=== PATIENT | female | born 2000 | race Caucasian/White ===

== ENCOUNTER 2021-08-12 20:53 | Outpatient (CLI) | payer MEDICAID ==
[~2021-08-12] VITALS: Wt 70.5 kg
[2021-08-12 21:56] LABS: COLLECTION METHOD CLEAN CATCH
[2021-08-12 21:59] LABS: BASO % 0.3 % (0.0-2.0); EOS % 0.3 % (0.0-4.0); GRAN # 10.6 K/mm3 (1.4-6.5); HEMOGLOBIN 12.7 g/dl (12.0-15.0); LYMPH # 1.8 K/mm3 (1.2-3.4); LYMPH % 13.6 % (20.0-51.0); MEAN CELL VOLUME 85 fl (80.0-95.0); MEAN CORPUSCULAR HEMOGLOBIN 30 pg (26-32); MEAN CORPUSCULAR HGB CONC 35 g/dl (33.0-37.0); MEAN PLATELET VOLUME 10.4 fl (7.4-10.4); MONO # 0.9 K/mm3 (0.1-0.6); MONO % 6.4 % (1.7-9.3); PLATELET COUNT 214 K/mm3 (130-400); RED BLOOD COUNT 4.25 M/mm3 (4.10-5.30); REDCELL DISTRIBUTION WIDTH-CV 12.8 % (11.5-14.5)
[2021-08-12 22:05] VITALS: BP 104/67; PULSE 82; TEMP 97.9
[2021-08-12 22:09] LABS: MUCOUS Present (NOT PRESENT); PH 7 (5-8); URINE APPEARANCE Cloudy (CLEAR/HAZY); URINE BACTERIA None Seen /hpf (NONE SEEN); URINE BILIRUBIN Negative (NEGATIVE); URINE BLOOD Negative (NEGATIVE); URINE COLOR Yellow (YELLOW); URINE GLUCOSE Negative (NEGATIVE); URINE KETONE 1+ (NEGATIVE); URINE LEUKOCYTE ESTERASE Negative (NEGATIVE); URINE NITRATE Negative (NEGATIVE); URINE PROTEIN(semi-quant) Negative (NEGATIVE); URINE RBC 0-2 /hpf (0-2); URINE UROBILINOGEN Negative (NEGATIVE); URINE WBC 0-2 /hpf (0-2)
[2021-08-12 22:17] LABS: ALBUMIN 3.2 gm/dL (3.5-5.0); BILIRUBIN,TOTAL 0.4 mg/dL (0.2-1.2); CALCIUM 9.3 mg/dL (8.4-10.2); CREATININE, serum 0.67 mg/dL (0.57-1.11); POTASSIUM 3.7 mmol/L (3.5-4.5); TOTAL PROTEIN 6.6 gm/dL (6.2-8.1)
[2021-08-12] MEDS ORDERED: ZOLOFT 100MG100 MG PO (22:17)
[2021-08-12] MEDS ORDERED: VISTARIL 2525 MG/CAP PO (22:18)
[2021-08-12] MEDS ORDERED: PRENATAL TABLET PO (22:18)
== END 2021-08-12 22:55 | disposition home or self-care (01) ==
LOC: LDRO 20:53 → LDR 21:00 → LDRO 22:55
PROVIDERS: Obstetrics & Gynecology
DX: O26.892 Other specified pregnancy related conditions, second trimester (principal); O21.9 Vomiting of pregnancy, unspecified; R10.9 Unspecified abdominal pain; R19.7 Diarrhea, unspecified; Z3A.25 25 weeks gestation of pregnancy
CPT/HCPCS: OP; J2405; J7121

== ENCOUNTER 2021-09-17 12:31 | Emergency (ER) | payer OTHER, MEDICAID ==
[~2021-09-17] VITALS: Wt 70.5 kg
[~2021-09-17 12:31] MED LIST: PRENATAL TABLET PO; VISTARIL 2525 MG/CAP PO; ZOLOFT 100MG100 MG PO
[2021-09-17 16:28] LABS: COLLECTION METHOD CLEAN CATCH
[2021-09-17 16:33] LABS: BASO % 0.4 % (0.0-2.0); EOS # 0.1 K/mm3 (0.0-0.7); EOS % 0.6 % (0.0-4.0); GRAN % 74.7 % (42.2-75.2); HEMOGLOBIN 11.8 g/dl (12.0-15.0); LYMPH # 1.8 K/mm3 (1.2-3.4); LYMPH % 16.4 % (20.0-51.0); MEAN CELL VOLUME 88 fl (80.0-95.0); MEAN CORPUSCULAR HEMOGLOBIN 30 pg (26-32); MEAN CORPUSCULAR HGB CONC 34 g/dl (33.0-37.0); MEAN PLATELET VOLUME 10.9 fl (7.4-10.4); MONO # 0.8 K/mm3 (0.1-0.6); MONO % 7.2 % (1.7-9.3); PLATELET COUNT 207 K/mm3 (130-400); REDCELL DISTRIBUTION WIDTH-CV 12.5 % (11.5-14.5)
[2021-09-17 16:37] LABS: MUCOUS Present (NOT PRESENT); PH 7 (5-8); SQUAMOUS EPITHELIAL 0-2 /hpf (0-10); URINE APPEARANCE Clear (CLEAR/HAZY); URINE BACTERIA None Seen /hpf (NONE SEEN); URINE BILIRUBIN Negative (NEGATIVE); URINE BLOOD Negative (NEGATIVE); URINE COLOR Yellow (YELLOW); URINE GLUCOSE Negative (NEGATIVE); URINE KETONE Negative (NEGATIVE); URINE LEUKOCYTE ESTERASE Negative (NEGATIVE); URINE NITRATE Negative (NEGATIVE); URINE PROTEIN(semi-quant) Negative (NEGATIVE); URINE RBC 0-2 /hpf (0-2); URINE UROBILINOGEN Negative (NEGATIVE)
[2021-09-17 16:51] LABS: ALBUMIN 2.9 gm/dL (3.5-5.0); CALCIUM 8.3 mg/dL (8.4-10.2); CREATININE, serum 0.59 mg/dL (0.57-1.11); POTASSIUM 3.8 mmol/L (3.5-4.5); TOTAL PROTEIN 6.1 gm/dL (6.2-8.1)
[2021-09-17 17:10] LABS: BILIRUBIN,TOTAL 0.3 mg/dL (0.2-1.2)
[2021-09-17 20:15] VITALS: BP 121/68; PULSE 89; TEMP 98.1
== END 2021-09-17 18:31 | disposition home or self-care (01) ==
LOC: COL.ER 12:31
PROVIDERS: Nurse Practitioner
DX: O26.813 Pregnancy related exhaustion and fatigue, third trimester (principal); R55 Syncope and collapse; O99.343 Other mental disorders complicating pregnancy, third trimester; F32.A Depression, unspecified; Z3A.30 30 weeks gestation of pregnancy; Z87.891 Personal history of nicotine dependence
CPT/HCPCS: J1200; J2765; J7030

== ENCOUNTER 2021-09-17 13:52 | Outpatient (CLI) | payer MEDICAID ==
[~2021-09-17] VITALS: Ht 152.4 cm; Wt 73.2 kg
--- NOTE | 2021-09-17 13:30 | NUR ---
Patient here from wheel chair via wheelchair. Patient states "I fainted this morning and fell and have not felt baby move much". Plan of care discussed and quesitons answered. 1400: Dr. Blair at nurses station and notified. Orders for a 20 minute reactive strip and to go back to ER to be assessed. Patient states that she is worried about her fainting spells. Dr. Blair updated. 1415: at bedside educating patient and discussing plan of care and questions answered. 1417: Patient off monitors. 1425: Patient to wheelchair and nanotechnology engineering technologist takes patient back to ER to be assessed for fall.
[2021-09-17 14:00] VITALS: BP 110/61; PULSE 80; TEMP 98.2
[2021-09-17 14:17] VITALS: BP 102/58; PULSE 89
== END 2021-09-17 14:25 | disposition home or self-care (01) ==
LOC: LDRO 13:52
DX: O36.8130 Decreased fetal movements, third trimester, not applicable or unspecified (principal); O9A.213 Injury, poisoning and certain other consequences of external causes complicating pregnancy, third trimester; Z3A.30 30 weeks gestation of pregnancy

== ENCOUNTER 2021-09-19 12:19 | Emergency (ER) | payer OTHER, MEDICAID ==
[~2021-09-19] VITALS: Ht 152.4 cm; Wt 70.5 kg
[2021-09-19 12:25] VITALS: TEMP 97.9
[2021-09-19 12:58] LABS: BASO % 0.4 % (0.0-2.0); EOS # 0.1 K/mm3 (0.0-0.7); EOS % 0.6 % (0.0-4.0); GRAN # 7.7 K/mm3 (1.4-6.5); HEMOGLOBIN 11.9 g/dl (12.0-15.0); LYMPH # 1.6 K/mm3 (1.2-3.4); LYMPH % 16.2 % (20.0-51.0); MEAN CELL VOLUME 88 fl (80.0-95.0); MEAN CORPUSCULAR HEMOGLOBIN 30 pg (26-32); MEAN CORPUSCULAR HGB CONC 34 g/dl (33.0-37.0); MEAN PLATELET VOLUME 10.6 fl (7.4-10.4); MONO # 0.6 K/mm3 (0.1-0.6); MONO % 6.3 % (1.7-9.3); PLATELET COUNT 205 K/mm3 (130-400); RED BLOOD COUNT 4.02 M/mm3 (4.10-5.30); REDCELL DISTRIBUTION WIDTH-CV 12.5 % (11.5-14.5)
[2021-09-19 12:59] LABS: HEMATOCRIT 35.5 % (35.0-45.0)
[2021-09-19 13:16] LABS: BILIRUBIN,TOTAL 0.3 mg/dL (0.2-1.2); CALCIUM 8.6 mg/dL (8.4-10.2); CREATININE, serum 0.66 mg/dL (0.57-1.11); POTASSIUM 3.3 mmol/L (3.5-4.5); TOTAL PROTEIN 6.2 gm/dL (6.2-8.1)
[2021-09-19 14:40] LABS: COLLECTION METHOD CLEAN CATCH
[2021-09-19 15:11] LABS: MUCOUS Present (NOT PRESENT); URINE BACTERIA Occasional /hpf (NONE SEEN); URINE RBC 0-2 /hpf (0-2)
[2021-09-19 15:28] LABS: PH 7 (5-8); URINE APPEARANCE Clear (CLEAR/HAZY); URINE COLOR Yellow (YELLOW)
[2021-09-19 15:29] LABS: URINE BILIRUBIN Negative (NEGATIVE); URINE BLOOD Negative (NEGATIVE); URINE GLUCOSE Negative (NEGATIVE); URINE KETONE Negative (NEGATIVE); URINE LEUKOCYTE ESTERASE Negative (NEGATIVE); URINE NITRATE Negative (NEGATIVE); URINE PROTEIN(semi-quant) Negative (NEGATIVE); URINE UROBILINOGEN Negative (NEGATIVE)
[2021-09-19 15:43] VITALS: BP 114/74; PULSE 79
== END 2021-09-19 15:45 | disposition home or self-care (01) ==
LOC: COL.ER 12:19
PROVIDERS: Emergency Medicine
DX: O26.813 Pregnancy related exhaustion and fatigue, third trimester (principal); R55 Syncope and collapse; O99.343 Other mental disorders complicating pregnancy, third trimester; F32.A Depression, unspecified; Z3A.30 30 weeks gestation of pregnancy
CPT/HCPCS: A4314; J7030

== ENCOUNTER 2021-10-12 13:33 | Emergency (ER) | payer OTHER, MEDICAID ==
[~2021-10-12] VITALS: Ht 152.4 cm; Wt 72.7 kg
[2021-10-12 13:38] VITALS: TEMP 99.2
[2021-10-12 14:08] LABS: BASO % 0.3 % (0.0-2.0); EOS % 0.1 % (0.0-4.0); GRAN # 5.8 K/mm3 (1.4-6.5); GRAN % 84.6 % (42.2-75.2); HEMOGLOBIN 10.5 g/dl (12.0-15.0); LYMPH # 0.4 K/mm3 (1.2-3.4); LYMPH % 5.7 % (20.0-51.0); MEAN CELL VOLUME 85 fl (80.0-95.0); MEAN CORPUSCULAR HEMOGLOBIN 29 pg (26-32); MEAN CORPUSCULAR HGB CONC 34 g/dl (33.0-37.0); MEAN PLATELET VOLUME 10.3 fl (7.4-10.4); MONO # 0.6 K/mm3 (0.1-0.6); MONO % 8.7 % (1.7-9.3); PLATELET COUNT 159 K/mm3 (130-400); RED BLOOD COUNT 3.57 M/mm3 (4.10-5.30); REDCELL DISTRIBUTION WIDTH-CV 12.1 % (11.5-14.5)
[2021-10-12 14:09] LABS: HEMATOCRIT 30.5 % (35.0-45.0)
[2021-10-12 14:25] LABS: ALBUMIN 2.6 gm/dL (3.5-5.0); BILIRUBIN,TOTAL 0.3 mg/dL (0.2-1.2); CREATININE, serum 0.68 mg/dL (0.57-1.11); MAGNESIUM 1.5 mg/dL (1.7-2.2); POTASSIUM 3.4 mmol/L (3.5-4.5); TOTAL PROTEIN 5.4 gm/dL (6.2-8.1)
[2021-10-12 14:45] LABS: THYROID STIMULATING HORMONE 0.168 uIU/mL (0.350-4.940)
[2021-10-12 15:24] LABS: COLLECTION METHOD CLEAN CATCH
[2021-10-12 15:31] LABS: PH 7 (5-8); SQUAMOUS EPITHELIAL 0-2 /hpf (0-10); URINE APPEARANCE Clear (CLEAR/HAZY); URINE BACTERIA Rare /hpf (NONE SEEN); URINE BILIRUBIN Negative (NEGATIVE); URINE BLOOD Negative (NEGATIVE); URINE COLOR Straw (YELLOW); URINE GLUCOSE Negative (NEGATIVE); URINE KETONE Negative (NEGATIVE); URINE LEUKOCYTE ESTERASE Negative (NEGATIVE); URINE NITRATE Negative (NEGATIVE); URINE PROTEIN(semi-quant) Negative (NEGATIVE); URINE RBC 0-2 /hpf (0-2); URINE UROBILINOGEN Negative (NEGATIVE)
[2021-10-12] MEDS ORDERED: KEPPRA 500MG500 MG PO (16:04)
[2021-10-12 17:01] VITALS: BP 120/61; PULSE 80
== END 2021-10-12 17:00 | disposition home or self-care (01) ==
LOC: COL.ER 13:33
PROVIDERS: Student in an Organized Health Care Education/Training Program
DX: O99.353 Diseases of the nervous system complicating pregnancy, third trimester (principal); G40.909 Epilepsy, unspecified, not intractable, without status epilepticus; Z3A.34 34 weeks gestation of pregnancy
CPT/HCPCS: J1953

== ENCOUNTER 2021-10-14 12:32 | Inpatient (IN) | payer OTHER, MEDICAID ==
[~2021-10-14] VITALS: Ht 167.6 cm; Wt 72.7 kg
[~2021-10-14 12:32] MED LIST changes: +KEPPRA 500MG500 MG PO
--- NOTE | 2021-10-14 12:40 | NUR ---
1240- Pt seen in ED after found down at home from reported seizure activity. Pt G1L0 34.2 weeks pt of [facility]. Pt reports occasional contractions, denies any leaking of fluid or vaginal bleeding and reports normal movement. EFM and toco monitors started. 1302- Update given to ED staff. No contractions noted per toco monitor. Category 1 tracing. See FHR tracing flowsheet for details.
[2021-10-14 13:06] LABS: BASO % 0.2 % (0.0-2.0); EOS # 0.1 K/mm3 (0.0-0.7); EOS % 0.6 % (0.0-4.0); GRAN # 7.6 K/mm3 (1.4-6.5); GRAN % 80.9 % (42.2-75.2); HEMOGLOBIN 11.5 g/dl (12.0-15.0); LYMPH # 1.1 K/mm3 (1.2-3.4); LYMPH % 11.7 % (20.0-51.0); MEAN CELL VOLUME 86 fl (80.0-95.0); MEAN CORPUSCULAR HEMOGLOBIN 29 pg (26-32); MEAN CORPUSCULAR HGB CONC 33 g/dl (33.0-37.0); MEAN PLATELET VOLUME 10.2 fl (7.4-10.4); MONO # 0.6 K/mm3 (0.1-0.6); MONO % 6.1 % (1.7-9.3); PLATELET COUNT 173 K/mm3 (130-400); REDCELL DISTRIBUTION WIDTH-CV 12.5 % (11.5-14.5)
[2021-10-14 13:10] LABS: HEMATOCRIT 34.4 % (35.0-45.0)
[2021-10-14 13:24] LABS: ALANINE AMINOTRANSFERASE 12 U/L (0-55); ALBUMIN 2.7 gm/dL (3.5-5.0); ALKALINE PHOSPHATASE 109 U/L (40-150); ANION GAP 8 mmol/L (7-16); AST,SGOT 14 U/L (5-34); BILIRUBIN,TOTAL 0.4 mg/dL (0.2-1.2); BLOOD UREA NITROGEN 3 mg/dL (8-21); CALCIUM 8.2 mg/dL (8.4-10.2); CARBON DIOXIDE 20 mmol/L (22-29); CHLORIDE 111 mmol/L (98-107); GLUCOSE 91 mg/dL (70-99); POTASSIUM 3.6 mmol/L (3.5-4.5); SODIUM 139 mmol/L (136-145); TOTAL PROTEIN 5.8 gm/dL (6.2-8.1)
[2021-10-14 13:25] LABS: ALCOHOL(ethanol),MEDICAL < 10 mg/dL (0-10)
[2021-10-14 13:34] LABS: COLLECTION METHOD CLEAN CATCH
[2021-10-14 13:57] LABS: MUCOUS Present (NOT PRESENT); PH 5 (5-8); URINE APPEARANCE Cloudy (CLEAR/HAZY); URINE BACTERIA Occasional /hpf (NONE SEEN); URINE BILIRUBIN Negative (NEGATIVE); URINE BLOOD Negative (NEGATIVE); URINE COLOR Amber (YELLOW); URINE GLUCOSE Negative (NEGATIVE); URINE KETONE 1+ (NEGATIVE); URINE LEUKOCYTE ESTERASE Trace (NEGATIVE); URINE NITRATE Negative (NEGATIVE); URINE PROTEIN(semi-quant) 1+ (NEGATIVE); URINE RBC 0-2 /hpf (0-2)
[2021-10-14 14:03] LABS: TRICYCLIC ANTIDEPRESS URINE NEGATIVE
[2021-10-14] MEDS ORDERED: KEPPRA750 MG PO (14:37)
--- NOTE | 2021-10-14 23:39 | NUR ---
PATIENT ARRIVED TO ROOM 303 AT THIS TIME FROM THE ED. PATIENT CALM AND COOPERATIVE. V/S STABLE. FOOD PROVIDED TO PATIENT AT THIS TIME. SEIZURE PRECAUTIONS IN PLACE, CALL LIGHT WITHIN REACH, AND BED ALARM ON. PATIENT STATES SHE IS IN THERAPY WITH MATILDA MEZA THROUGH [facility] FOR ANXIETY AND DEPRESSION FOR PTSD. NO NEW CONCERNS REPORTED BY PATIENT AT THIS TIME.
[2021-10-14 23:46] VITALS: BP 104/64; PULSE 92; TEMP 99
[2021-10-15] VITALS (7 sets, daily range): BP systolic 95–111; BP diastolic 56–72; PULSE 66–99; TEMP 97.9–98.4
--- NOTE | 2021-10-15 09:59 | NUR ---
Patient requested assistance to the bathroom, d/t migraine and feeling like she may faint. Patient reports that her migraine is behind her eyes, and her vision will go black before she faints. Patient given PRN tylenol. Blinds closed in room to help w/ migraine. Dr. Vitale notified.
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
--- NOTE | 2021-10-15 14:35 | NUR ---
Patient has not expressed any complaints/concerns since this morning when she was experiencing a migraine. Does call for assistance to the restroom. RN from OB called and stated that she would be up at some point to do an NST.
--- NOTE | 2021-10-15 21:12 | NUR ---
ALERT AND X4. DENIES SOA, CHEST PAIN OR DIZZY. DENIES ANY COVID SYMPTOMS. PM MEDS GIVEN. AWAITING EEG AND MRI OF BRAIN FOR TOMORROW. SCD ON. CALL LIGHT WI REACH.
[2021-10-16 03:14] VITALS: BP 101/58; PULSE 97; TEMP 97.7
--- NOTE | 2021-10-16 05:29 | NUR ---
RESTED THROUGH THE NIGHT WITHOUT INCIDENT. CALL LIGHT WI REACH. NEEDS MET.
[2021-10-16 08:00] VITALS: BP 118/80; PULSE 111
[2021-10-16 08:40] LABS: BASO % 0.3 % (0.0-2.0); EOS # 0.1 K/mm3 (0.0-0.7); EOS % 0.8 % (0.0-4.0); GRAN # 4.6 K/mm3 (1.4-6.5); GRAN % 72.5 % (42.2-75.2); HEMOGLOBIN 11.4 g/dl (12.0-15.0); LYMPH # 1.2 K/mm3 (1.2-3.4); LYMPH % 18.3 % (20.0-51.0); MEAN CELL VOLUME 85 fl (80.0-95.0); MEAN CORPUSCULAR HEMOGLOBIN 29 pg (26-32); MEAN CORPUSCULAR HGB CONC 35 g/dl (33.0-37.0); MEAN PLATELET VOLUME 10.6 fl (7.4-10.4); MONO # 0.5 K/mm3 (0.1-0.6); MONO % 7.3 % (1.7-9.3); PLATELET COUNT 161 K/mm3 (130-400); RED BLOOD COUNT 3.88 M/mm3 (4.10-5.30); REDCELL DISTRIBUTION WIDTH-CV 12.4 % (11.5-14.5)
[2021-10-16 08:41] LABS: HEMATOCRIT 32.9 % (35.0-45.0)
[2021-10-16 08:55] LABS: ALBUMIN 2.6 gm/dL (3.5-5.0); BILIRUBIN,TOTAL 0.5 mg/dL (0.2-1.2); CALCIUM 7.7 mg/dL (8.4-10.2); CREATININE, serum 0.56 mg/dL (0.57-1.11); POTASSIUM 3.3 mmol/L (3.5-4.5); TOTAL PROTEIN 5.2 gm/dL (6.2-8.1)
--- NOTE | 2021-10-16 09:12 | NUR ---
operations technician came to this RN asking for assistance. Patient was unresponsive. VSS, BS WNL. Dominique called and notified. Stat labs ordered and obtained. Patient's eyes were rolled to the back of her head, pupils reactive. Patient moved from MRI cart back to her bed. Patient became responsive, eyes are tracking, following directions (squeezes hands, wiggles toes, nods head, blinks). However, patient is not verbal. Dominique is aware of this. Dr. Vitale to assess.
[2021-10-16 11:50] VITALS: BP 102/64; PULSE 92; TEMP 98.2
[2021-10-16] MEDS ORDERED: KEPPRA750 MG PO (13:56)
[2021-10-16 15:02] VITALS: BP 107/67; PULSE 111; TEMP 98.1
--- NOTE | 2021-10-16 17:47 | NUR ---
Patient has been doing okay since the events of this morning. Patient is A&Ox4, and conversating appropriately. Patient walked to the bathroom w/ the assistance of this RN.
[2021-10-16 20:22] VITALS: BP 92/56; PULSE 109; TEMP 97.9
--- NOTE | 2021-10-16 22:15 | NUR ---
ALERT AND OX4. DENIES SOA, CHEST PAIN OR DIZZY. MOVEMENT, NO CONTRACTIONS OR BLEEDING. DID HAVE A "EPSISODE" TODAY DURING DAY SHIFT. PM MEDS GIVEN AND SHOWERED. CALL LIGHT WI REACH.
[2021-10-17 00:23] VITALS: BP 93/55; PULSE 81; TEMP 98.2
[2021-10-17 04:33] VITALS: BP 102/65; PULSE 85; TEMP 97.7
--- NOTE | 2021-10-17 06:16 | NUR ---
RESTED THROUGH THE NIGHT WITHOUT INCIDENT. HAD SOME NAUSEA/VOMIT SMALL. RESOLVED DENIED NEED FOR MED.
[2021-10-17 07:12] VITALS: BP 100/61; PULSE 89; TEMP 98
--- NOTE | 2021-10-17 09:37 | NUR ---
PATIENT PLEASANT THIS MORNING WITH NO COMPLAINTS. STABLE CONDITION AND EXPERESSES THAT SHE WOULD LIKE TO GO HOME. ONGOING MONITOR IN PLACE WITH NO KNOWN COMPLICATIONS. NO SEIZURE LIKE ACTIVITY THUS FAR. CONT TO TAKE KEPPRA FOR THIS. DENIES COVID SYMPTOMS AT THIS TIME.
== END 2021-10-17 10:50 | disposition home or self-care (01) | DRG 831 ==
LOC: COL.ER 12:32 → MEDICAL 20:18
PROVIDERS: Emergency Medicine; Physician Assistant; ADMIT Internal Medicine
DX: O26.893 Other specified pregnancy related conditions, third trimester (principal); U07.1 COVID-19; O98.513 Other viral diseases complicating pregnancy, third trimester; R56.9 Unspecified convulsions; O99.013 Anemia complicating pregnancy, third trimester; D64.9 Anemia, unspecified; O99.343 Other mental disorders complicating pregnancy, third trimester; F41.9 Anxiety disorder, unspecified; F32.A Depression, unspecified; F43.10 Post-traumatic stress disorder, unspecified; Z3A.34 34 weeks gestation of pregnancy
CPT/HCPCS: 99233-AI; 99239; G0378; J1953; J7030

== ENCOUNTER 2021-11-19 07:20 | Inpatient (IN) | payer OTHER, MEDICAID ==
[~2021-11-19] VITALS: Ht 152.4 cm; Wt 75.5 kg
[2021-11-19] VITALS (8 sets, daily range): BP systolic 99–156; BP diastolic 50–81; PULSE 73–101; TEMP 98.3
[~2021-11-19 07:20] MED LIST changes: +KEPPRA750 MG PO
--- NOTE | 2021-11-19 19:05 | NUR ---
1904 - PATIENT AMBULATORY TO R4. PATIENT ORIENTED TO ROOM. PATIENT CHANGES INTO GOWN. 1914 - PLAN OF CARE DISCUSSED. PATIENT PLACED ON MONITOR. VITAL SIGNS OBTAINED. 1929 - IV STARTED, LABS OBTAINED ORDERED. LR INITIATED. 1939 - SVE PERFORMED BY VICKIE TURCIOS. 2. 1944 - PLAN OF CARE AGAIN REVIEWED. QUESTIONS ANSWERED. CONSENTS EXPLAINED AND SIGNED. ORAL HYDRATION PROVIDED. CARE ONGOING.
[2021-11-19 19:58] LABS: BASO % 0.3 % (0.0-2.0); EOS % 0.4 % (0.0-4.0); GRAN # 7.6 K/mm3 (1.4-6.5); GRAN % 73.1 % (42.2-75.2); HEMOGLOBIN 11.5 g/dl (12.0-15.0); LYMPH # 1.8 K/mm3 (1.2-3.4); LYMPH % 17.6 % (20.0-51.0); MEAN CELL VOLUME 84 fl (80.0-95.0); MEAN CORPUSCULAR HEMOGLOBIN 29 pg (26-32); MEAN CORPUSCULAR HGB CONC 34 g/dl (33.0-37.0); MEAN PLATELET VOLUME 11.1 fl (7.4-10.4); MONO # 0.8 K/mm3 (0.1-0.6); PLATELET COUNT 232 K/mm3 (130-400); RED BLOOD COUNT 4.03 M/mm3 (4.10-5.30); REDCELL DISTRIBUTION WIDTH-CV 12.2 % (11.5-14.5)
[2021-11-19 20:01] LABS: HEMATOCRIT 33.9 % (35.0-45.0)
[2021-11-19] MEDS ORDERED: KEPPRA1000 MG PO (20:23)
[2021-11-19] MEDS ORDERED: SEROQUEL50 MG PO (20:25)
--- NOTE | 2021-11-19 21:30 | NUR ---
TOCO TRACING POORLY. TOCO ADJUSTED. CARE ONGOING.
[2021-11-20] VITALS (70 sets, daily range): BP systolic 91–138; BP diastolic 46–97; PULSE 67–133; TEMP 97.3–98.7
--- NOTE | 2021-11-20 | NUR ---
TOCO TRACING INDESCERNIBLE. TOCO ADJUSTED. CARE ONGOING.
--- NOTE | 2021-11-20 03:00 | NUR ---
TOCO TRACING INDESCERNIBLE. TOCO ADJUSTED. CARE ONGOING.
--- NOTE | 2021-11-20 05:30 | NUR ---
TOCO TRACING INDESCERNIBLE. TOCO ADJUSTED. CARE ONGOING
--- NOTE | 2021-11-20 06:00 | NUR ---
TOCO TRACING POORLY. TOCO ADJUSTED. CARE ONGOING.
--- NOTE | 2021-11-20 06:15 | NUR ---
TOCO TRACING INDESCERNIBLE. TOCO ADJUSTED. CARE ONGOING.
--- NOTE | 2021-11-20 09:15 | NUR ---
0850 Pt sat up for epidural. Instructed on positioning 0907 Test dose given. Pt repositioned. Safety precautions and plan of care discussed. Pt verbalizes understanding. Call light within reach.
--- NOTE | 2021-11-20 16:40 | NUR ---
1632 Dr. Blair at pt's bedside. assessing FHR strip. SVE per Dr Blair 6-7/[address] Blair instructs to restart pitocin at 10 mu.
--- NOTE | 2021-11-20 17:05 | NUR ---
1705 pt vomiting this Rn at bedside 1710 This RN, Negrita Spear RN and Dr Blair at bedside repositioning patient. Lr increased. SVE per Dr Blair anterior lip/100/0. FSE placed by Dr Blair.
--- NOTE | 2021-11-20 18:20 | NUR ---
Pt sitting up pushing with RN. Report received from Jamie JOHNSTON. 1824: Pt begins pushing with this RN. remains at nurses station reviewing strip and ready for delivery. [id number]: Unable to map out active pressure for IUPC due to pt pushing. 183: at bedside to assess pushing. Provider remains on unit. Recurrent deep variables noted with pushing. 184: FHR deceleration remains down in the 90s for 100seconds with spontaneous return to baseline. Oxygen administered via oxymask at 10L. Pt continues pushing with provider on unit. 190: at bedside to assess pushing progress and ready for delivery. 1905: Pt assisted into footplates after contraction and begins pushing with provider. 1907: IUPC removed by provider. 1910: Spontaneous delivery of viable female infant by . Infants nares and mouth bulb suctioned by provider. Pitocin turned off per protocol. to warmer per pts request to be dried and assessed on warmer. Care of assummed by Nelia JOHNSTON. 1915: Spontaneous delivery of intact placenta by at this time. Pitocin resummed at 333mus/her per protocol. First degree and left labial laceration repaired by . Straight catherization completed by provider. Fundal message and internal sweep of uterus by provider. Pericare provided, pads changed and pt repositioned in bed. Ice pack applied to perineum. Plan of care and safety precautions explained to pt who verbalizes her understanding. Call light within reach.
[2021-11-21 01:00] VITALS: BP 90/55; PULSE 71; TEMP 98
[2021-11-21 05:30] VITALS: BP 94/54; PULSE 73; TEMP 97.7
[2021-11-21 07:13] VITALS: BP 93/52; PULSE 75; TEMP 97.3
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
[2021-11-21 12:30] VITALS: BP 98/64; PULSE 80; TEMP 97.3
[2021-11-21 16:50] VITALS: BP 101/62; PULSE 73; TEMP 97.9
[2021-11-21 19:15] VITALS: BP 95/59; PULSE 80; TEMP 98.1
--- NOTE | 2021-11-22 08:00 | NUR ---
PT REQUESTS TO NOT TAKE KEPPRA THIS MORNING D/T CAUSING INCREASED DROWSINESS AND PT WOULD LIKE TO BE ALERT FOR BABY ESPECIALLY WITH DISCHARGE TODAY. PT WILL TAKE DOSE AT HOME ONCE DISCHARGED. PROVIDER IS AGREEABLE TO PLAN.
[2021-11-22 08:24] VITALS: BP 97/65; PULSE 87; TEMP 97.7
[2021-11-22] MEDS ORDERED: IBU600 MG PO (08:36)
--- NOTE | 2021-11-22 11:16 | NUR ---
Discharge instructions reviewed with pt regarding activity, diet, pain control, daniel care, follow-up appointment, medications and when to see physician. Pt verbalizes understanding, denies questions or concerns at this time. Pt readying for discharge.
--- NOTE | 2021-11-22 11:49 | NUR ---
Pt discharged home, ambulates out of facility carrying baby in carrier accompanied by this nurse.
== END 2021-11-22 11:45 | disposition home or self-care (01) | DRG 806 ==
LOC: LDR 17:21 → OB 18:59 → LDR 18:59 → OB 11-21 04:41
PROVIDERS: ADMIT Obstetrics & Gynecology
PROC: 10E0XZZ Delivery of Products of Conception, External Approach (ICD-10-PCS; principal; 2021-11-19)
PROC: 0HQ9XZZ Repair Perineum Skin, External Approach (ICD-10-PCS; 2021-11-19)
PROC: 0UQMXZZ Repair Vulva, External Approach (ICD-10-PCS; 2021-11-19)
PROC: 3E0P7VZ Introduction of Hormone into Female Reproductive, Via Natural or Artificial Opening (ICD-10-PCS; 2021-11-19)
PROC: 3E033VJ Introduction of Other Hormone into Peripheral Vein, Percutaneous Approach (ICD-10-PCS; 2021-11-19)
PROC: 10907ZC Drainage of Amniotic Fluid, Therapeutic from Products of Conception, Via Natural or Artificial Opening (ICD-10-PCS; 2021-11-19)
DX: O99.344 Other mental disorders complicating childbirth (principal); O99.354 Diseases of the nervous system complicating childbirth; Z37.0 Single live birth; G40.909 Epilepsy, unspecified, not intractable, without status epilepticus; F32.A Depression, unspecified; O43.123 Velamentous insertion of umbilical cord, third trimester; O70.0 First degree perineal laceration during delivery; Z3A.39 39 weeks gestation of pregnancy; Z23 Encounter for immunization
CPT/HCPCS: J2405; J2590; J7120